=== PATIENT | male | born 1985 | race Caucasian/White ===

== ENCOUNTER → 2020-06-27 13:20 | Outpatient (CLI) | payer BC, SELFPAY ==
[2020-06-27 13:43] LABS: Basophils # 0.1 K/mm3 (0-0.2); Basophils % 0.7 % (0.1-2.0); Eosinophils # 0.3 K/mm3 (0.0-0.4); Eosinophils % 2.9 % (0.1-12.0); Hematocrit 43.6 % (42.0-52.0); Hemoglobin 13.9 g/dL (14.1-18.0); Lymphocytes # 2.3 K/mm3 (0.7-4.5); Lymphocytes % 24.7 % (10-50); Mean Corpuscular Hemoglobin 31.8 pg (27.0-31.2); Mean Corpuscular Volume 99.2 fl (80-94); Mean Platelet Volume 8.4 fl (7.4-10.4); Monocytes # 0.8 K/mm3 (0.1-1.0); Neutrophils # 5.8 K/mm3 (1.8-7.8); Neutrophils % 62.7 % (37.0-80.0); Platelet Count 264 K/mm3 (142-424); Red Blood Count 4.39 M/mm3 (4.60-6.20); Red Cell Distribution Width 13.4 % (11.5-17.5); White Blood Count 9.2 K/mm3 (4.8-10.8)
[2020-06-27 13:52] LABS: Alanine Aminotransferase 57 U/L (12-78); Albumin Level 4.5 g/dl (3.5-5.0); Albumin/Globulin Ratio 1.8 (1.1-1.8); Alkaline Phosphatase 61 U/L (38-126); Anion Gap 11.4 mEq/L (5-15); Aspartate Amino Transferase 41 U/L (17-59); Bilirubin,Total 0.4 mg/dl (0.2-1.3); Blood Urea Nitrogen 17 mg/dl (9-20); Calcium 10.2 mg/dl (8.4-10.2); Carbon Dioxide 26 mmol/L (22.0-30.0); Chloride 105 mmol/L (98-107); Estimated Glomerular Filt Rate 97 ml/min (>60); GFR (African American) 118 ML/MIN (>60); Globulin 2.5 g/dL (1.3-3.2); Glucose 97 mg/dl (74-100); HDL Cholesterol 41 mg/dl (40-60); Potassium 4.4 mmoL/L (3.5-5.1); Sodium 138 mmol/L (136-145)
[2020-06-27 14:03] LABS: Direct LDL Cholesterol 88.42 mg/dL (100-129)
[2020-06-27 14:10] LABS: Free T4 (Free Thyroxine) 1.17 ng/dl (0.78-2.19)
[2020-06-27 14:55] LABS: Chol/HDL Ratio 4.5 (1-3.5); Cholesterol 184 mg/dl (140-200); Triglycerides 263 mg/dl (30-150); VLDL Cholesterol 53 mg/dL (0-40)
== END ==
PROVIDERS: Visit Provider Physician Assistant
DX: Z00.00 Encounter for general adult medical examination without abnormal findings (principal); R53.83 Other fatigue; E55.9 Vitamin D deficiency, unspecified
CPT/HCPCS: 80053; 80061; 82306; 84439; 84443; 85025

== ENCOUNTER → 2020-07-11 09:22 | Outpatient (CLI) | payer BC, SELFPAY ==
--- NOTE | 2020-07-11 09:24 | CA_ITS ---
APPROVED REPORT Exam: Exercise Treadmill Technologist: Felicia Norton, Ht: 5 ft 8 in Wt: 236 lbs BSA: 2.19 m2 HR: 91 bpm BP: 151/96 mmHg Rhythm: NSR, normal Medical History Medical History: Smoking Medications: Buspirone,,,,, Magnesium,,,,, Esomeprazole,,,,, Stress Test Details Test: Isaac HR Resting HR: 97 bpm Max Heart Rate (APMHR): 187.367196 bpm Max HR Achieved: 143 bpm Target HR (85% APMHR): 158.524516 bpm % of APMHR: 76.47 Recovery HR: 105 bpm BP Resting BP: 151/96 mmHg Max BP: 160/90 mmHg Recovery BP: 155.0/102.0 mmHg ECG Resting ECG: NSR, normal Clinical Exercise duration: 07:15 min Highest Stage Achieved: Exercise capacity: 10.1 METs Stress ECG Conclusion During isaac protocol stress test pt exercised total of 7:15. Test stopped due to pt getting fatique and SOA. Pt had no chest pain. No arrthymias or ectopy noted. Normal ST response to excerise. Normal GXT to HR achieved, 76% of PMHR. Poor exercise tolerance. GXT only. Test Summary RECOVERY 02:00 0.0 0.0 105 . . . . REST . . . . . . . Sitting REST 04:04 0.0 0.0 97 . 151/ 96 . . Stage 1 01:00 10.0 1.7 110 . . . . Stage 1 02:00 10.0 1.7 115 . . . . Stage 1 03:00 10.0 1.7 112 . 154/ 90 . . Stage 2 01:00 12.0 2.5 120 . . . . Stage 2 02:00 12.0 2.5 122 . . . . Stage 2 03:00 12.0 2.5 129 . 160/ 90 . . Stage 3 01:00 14.0 3.4 138 . . . . Stage 3 01:15 14.0 3.4 143 . . . Stop exercise at 07:15 RECOVERY 01:00 0.0 0.0 111 . . . . RECOVERY 02:00 0.0 0.0 105 . . . . RECOVERY 03:00 0.0 0.0 101 . 155/102 . . RECOVERY 04:00 0.0 0.0 107 . 152/101 . . RECOVERY 05:00 0.0 0.0 96 . 137/ 99 . . RECOVERY 05:18 0.0 0.0 96 . 137/ 99 . . Electronically signed by : Mike Smith, 07/13/2020 11:38:44
--- NOTE | 2020-07-11 09:24 | CA_ITS ---
APPROVED REPORT EXAM: Comprehensive 2D, Doppler, and color-flow Echocardiogram Wastewater Technician: Vivian Rodriguez RCS, RVS Ht: 5 ft 8 in Wt: 238lbs BSA: 2.20 BP: 128/92 mmHg Indications: CP, smoker,SOA Echo Enhancing Agent Comments: Poor acoustics throughout exam due to lung impedence, large body habitus 2D Dimensions IVSd 0.79 cm LVEF (Visual) 47.20 % PWd 0.75 cm LA Volume 63.50 mL LVDd 5.36 cm LVDs 4.08 cm Left Atrium 3.45 cm LVOT 2.11 cm (M/F) 1.5-2.5 M-Mode Dimensions RVDd 2.50 cm (0.9-2.6) LA Diam 3.43 cm (1.9-4.0) LVDd 4.85 cm (3.5-5.7) Ao Diam 3.43 cm (2.0-3.7) LVDs 3.83 cm (3.5-5.7) IVSd 0.95 cm (0.6-1.1) PWd 1.02 cm (0.6-1.1) EF (Teich) 53.80% EPSs 0.38 cm FS 28.00% EDV (Teich) 136.50 mL TAPSE 1.62 (<1.7) ESV (Teich) 63.10 mL LV Diastology E Decel Time 145.00 (160-240 msec) E/A Ratio 1.43 MED E' 7.50 (< 7 cm/sec) MED A' 10.10 cm/s E'/MED E' Ratio 11.71 (>14) LAT E' 9.40 (<10 cm/sec) LAT A' 10.40 cm/s E/LAT E' Ratio 9.34 (>14) Aortic Valve LVOT Max 93.00 (70-110 cm/s) LVOT VTI 18.96 cm AoV Peak Shabbir. 136.00 (50-130 cm/s) AO Peak GR. 7.40 mmHg AO Mean GR. 4.10 (<5 mmHg) AO VTI 25.83 (18-25 cm) SHIMA (VTI) 2.57 (2.5-4.5 cm2) Mitral Valve MV A Velocity 62.00 (40-130 cm/s) E/A Ratio 1.43 MV Decel. Time 145.00 (160-240 ms) Pulmonary Valve PV Peak Velocity 82.00 (50-150 cm/s) Tricuspid Valve TR P. Velocity 218.00 cm/s RAP Estimate 10.00 mmHg RVSP 29.00 mmHg Left Ventricle Left atrium is normal size, left ventricle is normal size, there is no concentric left ventricular hypertrophy, visually estimated ejection fraction 55% with no regional wall motion abnormality, diastolic parameters are inconclusive. Right Ventricle Right atrium and right ventricle are normal size and contractility. Aortic Valve Aortic valve is grossly normal. Mitral Valve Mitral valve grossly normal, there is trace mitral regurgitation. Tricuspid Valve Tricuspid grossly normal, there is trace tricuspid regurgitation, tricuspid regurgitation jet velocity is inadequate for calculation of the right ventricular systolic pressure. Pulmonic Valve Pulmonic valve is poorly visualized. Great Vessels Aortic root is normal size. Pericardium No significant pericardial effusion noted. Conclusion 1. Normal left ventricular size, preserved left ventricular systolic function, visually estimated ejection fraction 55% with no regional wall motion abnormality, diastolic parameters are inconclusive. 2. Trace mitral and tricuspid regurgitation. 3. No significant pericardial effusion noted. Electronically signed by : Jered Jarquin, 07/11/2020 15:21:06
== END ==
LOC: RT 09:24
PROVIDERS: PCP Physician Assistant; Visit Provider Physician Assistant
DX: R07.9 Chest pain, unspecified (principal)
CPT/HCPCS: 93017; 93306

== ENCOUNTER 2020-09-13 18:43 | Emergency (ER) | payer BC, SELFPAY ==
[2020-09-13 18:45] VITALS: BP 155/91; PULSE 84; RESP 18; TEMP 36.9; O2SAT 99; BMI 34.9
--- NOTE | 2020-09-13 18:51 | XR_ITS ---
PROCEDURE INFORMATION: Exam: XR Right Hand Exam date and time: 09/13/2020 6:51 PM Age: 34 years old Clinical indication: Injury or trauma; Other: Punched wall; Blunt trauma (contusions or hematomas); Hand; Right; Additional info: Punch wall TECHNIQUE: Imaging protocol: XR Right hand. Views: 3 or more views. Total images: 3 COMPARISON: No relevant prior studies available. FINDINGS: Bones/joints: Comminuted fracture of the base of the 5th metacarpal with articular extension at the CMC joint with 1-2 mm displacement of the lateral basilar fragment. No other fractures are identified. Spurring at the medial and lateral margins of the 1st MCP joint could indicate remote prior collateral ligamentous injury. Minor osteoarthritic joint space narrowing. Correlate clinically for evidence of chronic instability. Soft tissues: Dorsal soft tissue swelling in the hand. No radiopaque foreign body. IMPRESSION: 1. Comminuted mildly displaced fracture of the base of the 5th metacarpal with suspected articular extension. 2. Dorsal soft tissue swelling. 3. Calcifications in the medial and lateral margin of the 1st MCP joint may indicate remote prior collateral ligamentous injury, with mild osteoarthritic changes, correlate clinically for any evidence of chronic instability.
--- NOTE | 2020-09-13 19:50 | HMH.EDUTC ---
[facility] [place] Disposition Clinical Impression: Right hand fracture Qualifiers: Encounter type: initial encounter Fracture type: closed Qualified Code(s): S62.91XA - Unspecified fracture of right wrist and hand, initial encounter for closed fracture Disposition: Home, Self-Care Condition on Discharge: Good Instructions: DI for a Hand Fracture, How to Take Care of Your Splint, Hand Fracture Additional Instructions: Wear the splint, elevated your hand as much time as possible. Apply ice 3 or 4 times per day for the next 3 [address] Follow up with Dr. Samuel (orthopedics). I put in a referral but you need to call and make an appointment. Take ibuprofen or tylenol for pain. GO TO THE ER FOR ANY WORSENING SYMPTOMS OR CONCERNS Referrals: Elenita Lizarraga PA [Primary Care Provider] - Umang Samuel MD [Staff Physician] - Forms: Work/School Release Time of Disposition: 20:04 Medical Decision Making - Medical Records Medical records reviewed: No: I reviewed the patient's medical records. - Nasim Inquiry Pt receiving controlled substance: No Vital Signs: 09/13/20 18:45 09/13/20 19:59 Temperature 98.5 F 98.5 F Temperature Source Oral Pulse Rate 84 Pulse Rate [Left Brachial] 84 Respiratory Rate 18 18 Blood Pressure 155/91 H Blood Pressure [Left Arm] 155/91 H Blood Pressure Mean [Left Arm] 112 Blood Pressure Source [Left Arm] Automatic Cuff Blood Pressure Position [Left Arm] Sitting 02 Sat by Pulse Oximetry 99 Oxygen Delivery Method Room Air - Radiology Data #1 Image(s): Hand Image Reviewed: Yes I reviewed the patient's radiology image, Yes I have reviewed radiologist's interpretation Preliminary Findings: No Fracture Seen [facility] HPI - General Stated complaint: AO hit a wall 0600 09/12 injured R hand Time Seen by Provider: 09/13/20 19:00 Mode of Arrival: Ambulatory Source of Information: Patient Limitations: No Limitations Description of Symptoms (Recalled from Triage Doc. by RN): PATIENT C/O INJURY TO RIGHT HAND AFTER HITTING A WALL YESTERDAY MORNING HEENT Symptoms (Recalled from RN notes): No Resp Symptoms (Recalled from RN notes): No Skin Symptoms (Recalled from RN notes): No MS Symptoms (Recalled from RN notes): Yes Functional Status (Recalled from RN notes): WNL - History of Present Illness Provider Complaint: He punched a wall yesterday. He has had right hand pain, swelling and bruising since then. - Related Data Home Medications Medication Instructions Recorded Confirmed esomeprazole magnesium 40 mg 40 mg PO DAILY cap 04/20/18 09/13/20 capsule,delayed release Buspirone HCl [Buspar 5mg tablet] 5 mg PO BID 09/13/20 09/13/20 Allergies Allergy/AdvReac Type Severity Reaction Status Date / Time naproxen [From Aleve] Allergy Mild Verified 06/27/20 10:48 - Worker's Comp Is this a Worker's Comp case?: No [facility] History - Hepatitis A Screen Drug use history?: No High risk sexual behaviors?: No History of sexually transmitted infection?: No Currently employed?: No Childcare worker?: No Do you have indoor plumbing?: Yes Do you have electricity?: Yes Attestation statement:: This patient has been screened for Hepatitis A risk factors. I have reviewed the patient's past medical history: Yes Medical History: Reports:: Anxiety Other Surgeries: Yes: No Previous Surgery, Other Amputation: No Fractures: No Comment: Right shoulder - Social History Smoking Status: Current every day smoker Tobacco Type: cigarettes # Packs/Day (cigarettes): 1 Alcohol Intake: never Alcohol Intake Frequency:: holidays/special occasions only Substance Use Type: denies use Occupational Status: other Housing: house Household Members: family - Psychiatric History Pschychiatric History:: Reports:: Anxiety Family Hx:: No significant family history ROS Obtained: Yes All systems reviewed & no additional complaints - Constitutional Constitutional: Denies chills, Denies fever(s)
[2020-09-13 19:59] VITALS: BP 155/91; PULSE 84; RESP 18; TEMP 36.9; O2SAT 99
== END 2020-09-13 20:12 | disposition home or self-care (01) ==
PROVIDERS: Emergency Provider Nurse Practitioner Family; PCP Physician Assistant
DX: S62.316A Displaced fracture of base of fifth metacarpal bone, right hand, initial encounter for closed fracture (principal); W22.01XA Walked into wall, initial encounter; Y92.9 Unspecified place or not applicable
CPT/HCPCS: 29125; 73130; 99203; G0463

== ENCOUNTER → 2020-09-20 14:32 | Outpatient (CLI) | payer BC, SELFPAY ==
--- NOTE | 2020-09-20 14:36 | XR_ITS ---
PROCEDURE: XR HAND RT MIN 3V CLINICAL INDICATION: RT hand fx COMPARISON: CR XR HAND RT MIN 3V from 09/13/2020 FINDINGS: Healing fracture of the base of the 5th metacarpal is noted. Minor adjacent callus formation. Presence of plastic cast slightly limits evaluation. Soft tissue swelling adjacent to the base of the 5th metacarpal. IMPRESSION: Healing fracture of the base of the 5th metacarpal is noted. Dictated by: Shaniqau Samuel 09/20/2020 15:46 Shaniqua Samuel in [place] 09/20/2020 15:46
== END ==
LOC: RAD 14:34
PROVIDERS: PCP Physician Assistant; Visit Provider Orthopaedic Surgery
DX: S62.91XA Unspecified fracture of right hand, initial encounter for closed fracture (principal)
CPT/HCPCS: 73130

== ENCOUNTER → 2020-09-27 13:29 | Outpatient (CLI) | payer BC, SELFPAY ==
--- NOTE | 2020-09-27 13:35 | XR_ITS ---
PROCEDURE: XR HAND RT MIN 3V CLINICAL INDICATION: RT 4th 5th MC fx Follow-up fracture COMPARISON: CR XR HAND RT MIN 3V from 09/13/2020 CR XR HAND RT MIN 3V from 09/20/2020 FINDINGS: There is a splint in place along the ulnar aspect of the hand stabilizing the nondisplaced 5th metacarpal fracture. There is good alignment. IMPRESSION: Good alignment status post closed reduction 5th metacarpal fracture Dictated by: Torres Rivas MD 09/27/2020 16:03 Torres Rivas MD in [place] 09/27/2020 16:03
== END ==
LOC: RAD 13:31
PROVIDERS: PCP Physician Assistant; Visit Provider Orthopaedic Surgery
DX: S62.91XA Unspecified fracture of right hand, initial encounter for closed fracture (principal)
CPT/HCPCS: 73130

== ENCOUNTER → 2020-10-11 13:58 | Outpatient (CLI) | payer BC, SELFPAY ==
--- NOTE | 2020-10-11 14:01 | XR_ITS ---
PROCEDURE: XR HAND RT MIN 3V CLINICAL INDICATION: RT hand fracture COMPARISON: CR XR HAND RT MIN 3V from 09/13/2020 CR XR HAND RT MIN 3V from 09/20/2020 CR XR HAND RT MIN 3V from 09/27/2020 FINDINGS: Nondisplaced fracture involves the proximal aspect of the 5th metacarpal with some developing callus formation. There is good alignment. The joint spaces are well-preserved. No significant degenerative/arthritic changes. No erosive changes evident. Other findings:The splint has been removed IMPRESSION: Good alignment nondisplaced healing 5th metacarpal fracture Dictated by: Torres Rivas MD 10/11/2020 14:36 Torres Rivas MD in [place] 10/11/2020 14:36
== END ==
LOC: RAD 13:59
PROVIDERS: PCP Physician Assistant; Visit Provider Orthopaedic Surgery
DX: S62.91XA Unspecified fracture of right hand, initial encounter for closed fracture (principal)
CPT/HCPCS: 73130

== ENCOUNTER → 2020-11-13 13:31 | Outpatient (CLI) | payer BC, SELFPAY ==
--- NOTE | 2020-11-13 13:34 | XR_ITS ---
PROCEDURE: XR HAND RT MIN 3V CLINICAL INDICATION: right hand fx; out of splint COMPARISON: No exams were available for comparison FINDINGS: There is a healing fracture involving the proximal aspect of the 5th metacarpal with good alignment. Fracture lines appears somewhat less prominent. The joint spaces are well-preserved. No significant degenerative/arthritic changes. No erosive changes evident. Other findings:None. IMPRESSION: Healing fracture base of 5th metacarpal. Dictated by: Torres Rivas MD 11/13/2020 16:45 Torres Rivas MD in [place] 11/13/2020 16:45
== END ==
LOC: RAD 13:33
PROVIDERS: PCP Physician Assistant; Visit Provider Orthopaedic Surgery
DX: S62.91XA Unspecified fracture of right hand, initial encounter for closed fracture (principal)
CPT/HCPCS: 73130

== ENCOUNTER → 2021-01-09 17:37 | Outpatient (CLI) | payer BC, SELFPAY ==
[2021-01-09 19:36] LABS: Uric Acid 7.7 mg/dl (3.5-8.5)
== END ==
PROVIDERS: Visit Provider Physician Assistant
DX: M25.562 Pain in left knee (principal)
CPT/HCPCS: 84550

== ENCOUNTER → 2021-01-14 13:20 | Outpatient (CLI) | payer BC, SELFPAY ==
[2021-01-14 15:31] LABS: Basophils # 0.1 K/mm3 (0-0.2); Basophils % 0.7 % (0.1-2.0); Eosinophils # 0.1 K/mm3 (0.0-0.4); Eosinophils % 0.5 % (0.1-12.0); Hemoglobin 15.2 g/dL (14.1-18.0); Lymphocytes # 3.4 K/mm3 (0.7-4.5); Lymphocytes % 19.9 % (10-50); Mean Corpuscular HGB Conc 33.8 g/dL (31.8-35.4); Mean Corpuscular Hemoglobin 33.3 pg (27.0-31.2); Mean Corpuscular Volume 98.6 fl (80-94); Mean Platelet Volume 8.8 fl (7.4-10.4); Monocytes # 1.1 K/mm3 (0.1-1.0); Monocytes % 6.2 % (1.7-9.3); Neutrophils # 12.5 K/mm3 (1.8-7.8); Neutrophils % 72.7 % (37.0-80.0); Platelet Count 431 K/mm3 (142-424); Red Blood Count 4.57 M/mm3 (4.60-6.20); Red Cell Distribution Width 12.8 % (11.5-17.5); White Blood Count 17.2 K/mm3 (4.8-10.8)
[2021-01-14 15:35] LABS: MANUAL DIFFERENTIAL MANUAL DIFFERENTIAL (MANUAL DIFF)
[2021-01-14 16:09] LABS: Hypochromasia 1+; Lymphocytes % 14 % (10-50); Monocytes % 9 % (2-9); Neutrophils % 77 % (42-76); Platelet Estimate Normal; Total Cells Counted 100
[2021-01-14 16:59] LABS: Erythrocyte Sedimentation Rate 22 mm/hr (0-15)
[2021-01-14 18:34] LABS: Alanine Aminotransferase 28 U/L (12-78); Albumin Level 4.2 g/dl (3.5-5.0); Albumin/Globulin Ratio 1.3 (1.1-1.8); Alkaline Phosphatase 60 U/L (38-126); Anion Gap 16.3 mEq/L (5-15); Aspartate Amino Transferase 26 U/L (17-59); Bilirubin,Total 0.2 mg/dl (0.2-1.3); Blood Urea Nitrogen 19 mg/dl (9-20); Calcium 9.4 mg/dl (8.4-10.2); Carbon Dioxide 24 mmol/L (22.0-30.0); Chloride 104 mmol/L (98-107); Estimated Glomerular Filt Rate 129 ml/min (>60); GFR (African American) 156 ML/MIN (>60); Globulin 3.2 g/dL (1.3-3.2); Glucose 72 mg/dl (74-100); Potassium 4.3 mmoL/L (3.5-5.1); Sodium 140 mmol/L (136-145); Total Protein,Serum 7.4 g/dl (6.3-8.2)
[2021-01-14 18:39] LABS: C-Reactive Protein 8.1 mg/L (0-4)
[2021-01-16 13:11] LABS: Anti-Centromere B Antibodies <0.2 AI (0.0-0.9); Anti-DNA (DS) Ab Qn <1 IU/mL (0-9); Anti-Jo-1 <0.2 AI (0.0-0.9); Anti-Smith Antibody <0.2 AI (0.0-0.9); Antichromatin Antibodies <0.2 AI (0.0-0.9); Antiscleroderma-70 Antibodies <0.2 AI (0.0-0.9); RNP Antibodies <0.2 AI (0.0-0.9); Sjogren's Anti-SS-A <0.2 AI (0.0-0.9); Sjogren's Anti-SS-B <0.2 AI (0.0-0.9)
[2021-01-17 00:09] LABS: Anti-Cyclic Citrullinated Pept 9 units (0-19)
== END ==
PROVIDERS: Visit Provider Physician Assistant
DX: M25.562 Pain in left knee (principal)
CPT/HCPCS: 80053; 85007; 85025; 85651; 86140; 86200; 86225; 86235; 86431

== ENCOUNTER → 2021-01-17 13:15 | Outpatient (CLI) | payer BC, SELFPAY ==
--- NOTE | 2021-01-17 13:19 | XR_ITS ---
PROCEDURE: XR KNEE LT 4V CLINICAL INDICATION: LT knee pain COMPARISON: No exams were available for comparison FINDINGS: No fracture or dislocation. No lytic or blastic change. There is normal mineralization. The joint spaces are well-preserved. No significant degenerative/arthritic changes. No erosive changes evident. Other findings:Small bone island is present in the distal femur anteriorly. IMPRESSION: No acute findings. Dictated by: Torres Rivas MD 01/17/2021 14:24 Torres Rivas MD in [place] 01/17/2021 14:24
== END ==
LOC: RAD 13:16
PROVIDERS: PCP Physician Assistant; Visit Provider Orthopaedic Surgery
DX: M25.562 Pain in left knee (principal)
CPT/HCPCS: 73564

== ENCOUNTER 2021-08-10 16:38 | Emergency (ER) | payer BC, SELFPAY ==
[2021-08-10 17:00] VITALS: BP 131/86; PULSE 101; RESP 19; TEMP 37.2; O2SAT 98; BMI 36.0
[2021-08-10 17:18] LABS: Strep Scrn Group A (Rapid) Negative (Negative)
--- NOTE | 2021-08-10 17:21 | HMH.EDUTC ---
[facility] [place] Disposition Clinical Impression: Acute bacterial tonsillitis Disposition: Home, Self-Care Condition on Discharge: Good Instructions: Methylprednisolone, Cefdinir Additional Instructions: *Monitor Temp, Over the counter Motrin or Tylenol as directed/as needed Tylenol every 4 hours and Motrin every 6 hours (as long as your family doctor has told you that you can take it) for fever or pain. and straight to ER if unable to lower temp less than 101.0 after medication given *Warm salt water gargles may help to soothe the throat *Throat Lozenges *Warm fluids like tea with honey may help to soothe the throat *Sleep elevated *Humidifier/Vaporizer Your throat swab was sent for culture. Those results are typically sent to your primary care. Be sure to follow up in 2-3 days with your family doctor/primary care physician if no improvement so they can review those result and treat if necessary. If you don?t have a primary care doctor, I recommend you get one but in the mean time, you will have to return to a walk in clinic Follow up IMMEDIATELY for new or worsening symptoms or no Noticeable improvement over the next 48-72 hours. 911 for difficulty breathing or swallowing Prescriptions: methylPREDNISolone [Medrol 4mg tab] 4 mg PO DIRECTED #21 tab Transmission Status: Received by [id number] Cefdinir [Omnicef 300mg Capsule] 300 mg PO BID #20 cap Transmission Status: Received by [id number] Referrals: Elenita Lizarraga PA [Primary Care Provider] - As needed Time of Disposition: 18:17 Medical Decision Making - Nasim Inquiry Pt receiving controlled substance: No Nasim was queried for this patient: No Vital Signs: 08/10/21 17:00 08/10/21 18:32 Temperature 98.9 F 98.9 F Temperature Source Oral Pulse Rate 101 H Pulse Rate [Right Brachial] 101 H Respiratory Rate 19 19 Blood Pressure 131/86 Blood Pressure [Right Arm] 131/86 Blood Pressure Mean [Right Arm] 101 Blood Pressure Source [Right Arm] Automatic Cuff Blood Pressure Position [Right Arm] Sitting 02 Sat by Pulse Oximetry 98 Oxygen Delivery Method Room Air - Lab Data Lab results reviewed: Yes: I reviewed the patient's lab results. Lab Results 08/10/21 16:46: Group A Strep Rapid Negative 08/10/21 17:40: Monoscreen Negative Orders (Tests/Meds): ED MEDICATIONS Discontinued Medications Generic Name Dose Route Start Last Admin Trade Name Aster PRN Reason Stop Dose Admin Cefdinir 300 mg 08/10/21 18:17 08/10/21 18:20 Cefdinir 300mg Capsule PO 08/10/21 18:18 300 mg ONCE ONE Administration Methylprednisolone Sodium Succinate 125 mg 08/10/21 18:15 08/10/21 18:20 Methylprednisolone Sod Succ 125mg Vial IM 08/10/21 18:16 125 mg ONCE ONE Administration ORDERS Category Date Time Status Strep Screen Confirmation Stat Micro 08/10/21 16:46 Received [facility] HPI - General Stated complaint: sore throat, cough Time Seen by Provider: 08/10/21 17:25 Mode of Arrival: Ambulatory Source of Information: Patient Limitations: No Limitations Description of Symptoms (Recalled from Triage Doc. by RN): PATIENT C/O SORE THROAT X 1 WEEK HEENT Symptoms (Recalled from RN notes): Yes Resp Symptoms (Recalled from RN notes): No Skin Symptoms (Recalled from RN notes): No MS Symptoms (Recalled from RN notes): No Functional Status (Recalled from RN notes): WNL - History of Present Illness Provider Complaint: Patient states that he has been having sore throat for about a week and today he noticed his lymph nodes on left side of neck was swollen and his left tonsil had patchy like areas on it so he came in - Related Data Home Medications Medication Instructions Recorded Confirmed esomeprazole magnesium 40 mg 40 mg PO DAILY cap 04/20/18 01/17/21 capsule,delayed release ergocalciferol (vitamin D2) 1,250 1,250 mcg PO WEEKLY cap 01/09/21 01/17/21 mcg (50,000 unit) capsule Previous Rx's [facility]
[2021-08-10 18:04] LABS: Monoscreen (Rapid) Negative (Negative)
[2021-08-10 18:32] VITALS: BP 131/86; PULSE 101; RESP 19; TEMP 37.2; O2SAT 98
== END 2021-08-10 18:37 | disposition home or self-care (01) ==
PROVIDERS: Emergency Provider Nurse Practitioner; PCP Physician Assistant
DX: J03.80 Acute tonsillitis due to other specified organisms (principal); B96.89 Other specified bacterial agents as the cause of diseases classified elsewhere; F17.210 Nicotine dependence, cigarettes, uncomplicated
CPT/HCPCS: 86318; 87430; 96372; 99212; G0463

== ENCOUNTER → 2021-10-15 06:25 | Outpatient (CLI) | payer BC, SELFPAY ==
[2021-10-15 18:35] LABS: Erythrocyte Sedimentation Rate 15 mm/hr (0-15)
[2021-10-15 19:34] LABS: Uric Acid 8.2 mg/dl (3.5-8.5)
== END ==
PROVIDERS: PCP Physician Assistant; Visit Provider Physician Assistant
DX: M25.572 Pain in left ankle and joints of left foot (principal)
CPT/HCPCS: 84550; 85651; 86140

== ENCOUNTER → 2022-06-11 20:34 | Outpatient (CLI) | payer BC, SELFPAY ==
[2022-06-11 18:41] LABS: Basophils % 0.3 % (0.1-2.0); Eosinophils # 0.3 K/mm3 (0.0-0.4); Eosinophils % 3.5 % (0.1-12.0); Hemoglobin 15.2 g/dL (14.1-18.0); Lymphocytes % 27.1 % (10-50); Mean Corpuscular HGB Conc 32.9 g/dL (31.8-35.4); Mean Corpuscular Hemoglobin 31.9 pg (27.0-31.2); Mean Corpuscular Volume 96.9 fl (80-94); Mean Platelet Volume 9.2 fl (7.4-10.4); Monocytes # 0.7 K/mm3 (0.1-1.0); Monocytes % 9.1 % (1.7-9.3); Neutrophils # 4.3 K/mm3 (1.8-7.8); Platelet Count 212 K/mm3 (142-424); Red Blood Count 4.75 M/mm3 (4.60-6.20); White Blood Count 7.2 K/mm3 (4.8-10.8)
[2022-06-11 19:13] LABS: Alanine Aminotransferase 58 U/L (12-78); Albumin Level 4.3 g/dl (3.5-5.0); Albumin/Globulin Ratio 1.7 (1.1-1.8); Alkaline Phosphatase 61 U/L (38-126); Anion Gap 8.1 mEq/L (5-15); Aspartate Amino Transferase 44 U/L (17-59); Bilirubin,Total 0.7 mg/dl (0.2-1.3); Blood Urea Nitrogen 11 mg/dl (9-20); Calcium 8.9 mg/dl (8.4-10.2); Carbon Dioxide 28 mmol/L (22.0-30.0); Chloride 105 mmol/L (98-107); Chol/HDL Ratio 4.6 (1-3.5); Cholesterol 158 mg/dl (140-200); Estimated Glomerular Filt Rate 110 ml/min (>60); GFR (African American) 133 ML/MIN (>60); Globulin 2.5 g/dL (1.3-3.2); Glucose 89 mg/dl (74-100); HDL Cholesterol 34 mg/dl (40-60); Potassium 4.1 mmoL/L (3.5-5.1); Sodium 137 mmol/L (136-145); Total Protein,Serum 6.8 g/dl (6.3-8.2); Triglycerides 268 mg/dl (30-150); Uric Acid 6.6 mg/dl (3.5-8.5); VLDL Cholesterol 54 mg/dL (0-40)
[2022-06-11 19:31] LABS: 25-OH Vitamin D, Total 29.6 ng/mL (30-100)
[2022-06-11 19:43] LABS: Thyroid Stimulating Hormone 2.99 uIU/mL (0.465-4.68)
== END ==
PROVIDERS: PCP Physician Assistant; Visit Provider Physician Assistant
DX: E55.9 Vitamin D deficiency, unspecified (principal); M10.9 Gout, unspecified; Z79.899 Other long term (current) drug therapy
CPT/HCPCS: 80053; 80061; 82306; 84443; 84550; 85025

== ENCOUNTER 2023-04-20 15:38 | Emergency (ER) | payer BC, SELFPAY ==
[2023-04-20 16:15] VITALS: BP 129/84; PULSE 85; RESP 16; TEMP 36.9; O2SAT 99; BMI 33.4
--- NOTE | 2023-04-20 16:35 | EXP.UTC ---
Discharge Plan Disposition Patient Disposition: Home, Self-Care Condition: Good Prescriptions Prescriptions: New methylprednisolone 4 mg Tablets,Dose Pack 4 mg PO DIRECTED 6 Days Qty: 21 0RF Rx Instructions: Take 1 pack as directed for 6 days ntzaxrwgknydjsw-sqrlyijvq-PU [Bromfed DM] 2-30-10 mg/5 mL Syrup 5 ml PO Q6H PRN (Reason: Cough) Qty: 240 0RF amoxicillin-pot clavulanate 875-125 mg Tablet 1 tab PO Q12H Qty: 20 0RF guaifenesin [Mucinex] 600 mg tablet extended release 12hr 600 - 1,200 mg PO BIDP PRN (Reason: Congestion) Qty: 30 0RF No Action buspirone 5 mg tablet See Rx Instructions .ROUTE .COMPLEX Qty: 180 0RF Dose Instruction: Take 1 tablet by mouth twice daily Rx Instructions: Take 1 tablet by mouth twice daily celecoxib [Celebrex] 200 mg capsule 200 mg PO DAILY Qty: 30 2RF allopurinol 100 mg tablet 100 mg PO DAILY Patient Comments: TAKE 1 TABLET BY MOUTH ONCE DAILY colchicine 0.6 mg tablet 0.6 mg PO DAILY esomeprazole magnesium [Nexium] 20 mg capsule,delayed release(DR/EC) 20 mg PO DAILY ergocalciferol (vitamin D2) 1,250 mcg (50,000 unit) capsule 1,250 mcg PO WEEKLY Qty: 14 3RF Referrals Follow up/Referrals: Elenita Lizarraga PA [Primary Care Provider] - See instructions Activity Restrictions/Add. Instructions Additional Instructions/Restrictions: Drink plenty of fluids. Take tylenol or ibuprofen for pain or fever. Take the medications as directed. Follow up with your regular doctor. GO TO THE ER FOR ANY WORSENING SYMPTOMS Clinical Impressions Clinical Impression: Sinusitis, Acute viral syndrome Stand Alone Forms Stand Alone Forms: Work/School Release Instructions Patient Instructions: Sinusitis, DI for Sinusitis Discharge ED Provider: Yobany Elias [facility] General Stated complaint: sinus pain Time Seen by Provider: 04/20/23 16:35 History of Present Illness Provider Complaint: He states that he has had sinus congestion, sinus pressure, cough, sore throat, and malaise for the past 2 days. Related Data Home Medications Medication Instructions Recorded Confirmed allopurinol 100 mg tablet 100 mg PO DAILY 06/11/22 06/11/22 colchicine 0.6 mg tablet 0.6 mg PO DAILY 06/11/22 06/11/22 esomeprazole magnesium 20 mg 20 mg PO DAILY 06/11/22 06/11/22 capsule,delayed release (Nexium) Previous Rx's Medication Instructions Recorded buspirone 5 mg tablet See Rx Instructions .Route 10/06/21 .COMPLEX #180 tabs celecoxib 200 mg capsule (Celebrex) 200 mg PO DAILY #30 caps 10/15/21 ergocalciferol (vitamin D2) 1,250 1,250 mcg PO WEEKLY #14 caps 06/11/22 mcg (50,000 unit) capsule amoxicillin 875 mg-potassium 1 tab PO Q12H #20 tabs 04/20/23 clavulanate 125 mg tablet zjtnnxdtibnmwcm-wnzlbzkmnjluqce-FF 5 ml PO Q6H PRN Cough #240 mL 04/20/23 2 mg-30 mg-10 mg/5 mL oral syrup (Bromfed DM) guaifenesin 600 mg tablet, 600 - 1,200 mg PO BIDP PRN 04/20/23 extended release 12 hr (Mucinex) Congestion #30 tabs methylprednisolone 4 mg tablets in 4 mg PO DIRECTED 6 days #21 tabs 04/20/23 a dose pack Allergies Allergy/AdvReac Type Severity Reaction Status Date / Time naproxen [From Aleve] Allergy Mild Verified 04/20/23 16:37 [facility] Disclaimer: The information contained in this section may have been updated after the patient was seen, as this information can be updated by other users. Medical History Anxiety Social History Smoking Status: Current every day smoker tobacco type: cigarettes packs per day: 1 alcohol intake: current substance use type: denies use current occupational status: other Travel in the last 8 weeks: None household members: family housing: house ROS Obtained: Yes All systems reviewed & no additional complaints except as documented Constitutional Constitutional: Reports chills and Reports fever(s) Eyes Eyes: Denies eye discharge ENT Ears, Nose, Mouth, and Throat: Reports as per HPI Cardiovascular Cardiovascular: Denies chest pain Respiratory Respiratory: Denies chest congestion and Reports cough Gastrointestinal Gastrointestingal: Reports nausea; Denies abdominal pain, constipation, cramping, diarrhea or vomiting Musculoskeletal Musculoskeletal: Denies arthralgias Integumentary/Breasts Skin/Breast: Denies rash Neurologic Neurologic: Denies paresthesias Physical Exam General General appearance: alert and in no apparent distress Eye Eye exam: Present normal appearance, PERRL and EOMI ENT ENT exam: Present mucous membranes moist and normal external ear exam Expanded ENT Exam External ear exam: Present normal external inspection TM/Canal exam: Bilateral TM: erythema and bulging Nose exam: Absent sinus tenderness Nasal speculum exam: Bilateral: normal Mouth exam: Present normal external inspection; Absent drooling Teeth exam: Present normal inspection Throat exam: Present tonsillar erythema and tonsillomegaly Neck Neck exam: Present normal inspection, full ROM and trachea midline; Absent tenderness, lymphadenopathy or thyromegaly Chest Chest inspection: Present normal inspection and symmetric chest wall rise; Absent tenderness or rash Respiratory Respiratory exam: Present normal lung sounds bilaterally; Absent respiratory distress, wheezes, stridor or accessory muscle use Cardiovascular Cardiovascular exam: Present regular rate, normal rhythm and normal heart sounds Abdominal Exam Abdominal exam: Present soft; Absent distention, tenderness, guarding, rebound or rigidity Extremities Exam Extremities exam: Present normal inspection, full ROM and normal capillary refill; Absent tenderness or calf tenderness Back Exam Back exam: Present normal inspection and full ROM; Absent tenderness Neurological Exam Neurological exam: Present alert and oriented X3 Psychiatric Psychiatric exam: Present normal affect and normal mood Skin Skin exam: Present warm, dry, intact and normal color Lymphatic Lymphatic Findings: no adenopathy Medical Decision Making Medical Records Medical records reviewed: No I reviewed the patient's medical records. Nasim Inquiry Pt receiving controlled substance: No Lab Data Lab results reviewed: Yes I reviewed the patient's lab results.
[2023-04-20 16:58] LABS: UTC Influenza A Antigen Negative (Negative); UTC Influenza B Antigen Negative (Negative); UTC Strep Screen (Rapid) Negative (Negative)
[2023-04-20 17:08] VITALS: BP 129/84; PULSE 85; RESP 16; TEMP 36.9; O2SAT 99
[2023-04-20 17:08] LABS: Coronavirus 19, PCR Not Detected (NotDetected); Influenza A, PCR Not Detected (NotDetected); Influenza B, PCR Not Detected (NotDetected)
== END 2023-04-20 17:07 | disposition home or self-care (01) ==
PROVIDERS: Emergency Provider Nurse Practitioner Family; PCP Physician Assistant
DX: J01.90 Acute sinusitis, unspecified (principal); R05.9 Cough, unspecified; R07.0 Pain in throat; R09.81 Nasal congestion; B34.9 Viral infection, unspecified
CPT/HCPCS: 87636; 87804; 87880; 99212; 99214; G0463

== ENCOUNTER 2024-05-05 16:23 | Outpatient (CLI) | payer BC, SELFPAY ==
--- NOTE | 2024-05-05 16:26 | XR_ITS ---
PROCEDURE INFORMATION: Exam: XR Right Knee Exam date and time: 05/05/2024 4:27 PM Age: 38 years old Clinical indication: Pain; Knee; Right; Additional info: R anterior knee pain TECHNIQUE: Imaging protocol: Radiologic exam of the right knee. Views: 3 views. COMPARISON: No relevant prior studies available. FINDINGS: Bones/joints: There are degenerative enthesophytes arising from the superior and inferior pole patella. There are minimal degenerative changes of the medial knee compartment with mild joint space narrowing. Osseous structures are otherwise unremarkable. No evidence of fracture, malalignment or underlying bone lesion. Soft tissues: Unremarkable. IMPRESSION: No acute bony abnormalities.
== END 2024-05-05 23:59 | disposition home or self-care (01) ==
LOC: RAD 16:24
PROVIDERS: PCP Physician Assistant; Visit Provider Student in an Organized Health Care Education/Training Program
DX: M25.561 Pain in right knee (principal)
CPT/HCPCS: 73562